=== PATIENT | female | born 1950 | race Caucasian/White ===

== ENCOUNTER 2019-06-28 10:30 | Inpatient (IN) | payer OTHER ==
[~2019-06-28] VITALS: Ht 167.6 cm; Wt 81.6 kg
[~2019-06-28 10:30] MED LIST: LIPITOR20 MG PO; NORVASC5 MG PO
== END 2019-07-01 10:58 | disposition home or self-care (01) | DRG 743 ==
LOC: O/R 10:30 → SURG 06-30 08:54 → O/R 06-30 08:54 → SURH 06-30 09:45 → SURG 06-30 15:28
PROVIDERS: ADMIT Obstetrics & Gynecology Gynecologic Oncology
PROC: 0UT74ZZ Resection of Bilateral Fallopian Tubes, Percutaneous Endoscopic Approach (ICD-10-PCS; 2019-06-30)
PROC: 0UT24ZZ Resection of Bilateral Ovaries, Percutaneous Endoscopic Approach (ICD-10-PCS; 2019-06-30)
PROC: 0UT94ZZ Resection of Uterus, Percutaneous Endoscopic Approach (ICD-10-PCS; principal; 2019-06-30 09:45)
DX: N85.01 Benign endometrial hyperplasia (principal); N72 Inflammatory disease of cervix uteri; N94.89 Other specified conditions associated with female genital organs and menstrual cycle; N83.8 Other noninflammatory disorders of ovary, fallopian tube and broad ligament